=== PATIENT | male | born 1965 | race Caucasian/White ===

== ENCOUNTER → 2017-07-13 | Outpatient (CLI) | payer MEDICAID ==
[~2017-07-13] MED LIST: ALBUTEROL2 PUFFS/17 IN; ALLERGY RELIEF25 M1 PO; BACITRACIN500 U/G1 EX; FLEXERIL10 MG PO; INDOMETHACIN25 MG; KEFLEX 500MG.500 MG PO; NAPROXEN SOD.550 MG PO; NORCO 325 MG-51 TAB PO; PERCOCET 5/3251 EACH PO; PHENERGAN 25MG.25 MG PR; PREDNISONE 20MG20 MG PO; PROPRANOLOL HCL20 MG PO; TRAMADOL 50MG T50 MG PO; VALIUM 10MG TAB10 MG PO; VICODIN 5/500 T1 TAB PO
[2017-07-13 10:28] LABS: HEMOGLOBIN 16.9 g/dL (14.1-18.0); LYMPH % 34.2 % (10-50)
[2017-07-13 12:51] LABS: BUN 15 mg/dL (7-18)
[2017-07-13 12:56] LABS: GFR (ESTIMATED) 70 ML/MIN (>60)
== END ==
LOC: LAB 10:08
PROVIDERS: Internal Medicine Cardiovascular Disease
DX: R94.39 Abnormal result of other cardiovascular function study (principal); I10 Essential (primary) hypertension; I20.9 Angina pectoris, unspecified; R06.09 Other forms of dyspnea; Z72.0 Tobacco use

== ENCOUNTER → 2017-07-15 | Day surgery (SDC) | payer MEDICAID ==
--- NOTE | 2017-07-15 11:04 | RADIOLOGY REPORT PS360 ---
CARDIAC CATHETERIZATION DATE OF CATHETERIZATION:07/15/2017 9:05 AM PROCEDURES: 1. Left heart catheterization 2. Left ventriculogram 3. Selective coronary angiogram 4. Drug-eluting stent deployment to the mid left anterior descending artery 5. Drug-eluting stent deployment to the proximal dominant circumflex artery INDICATION FOR TEST: 1. Abnormal high risk Myoview 2. Coronary artery disease 3. Class III angina pectoris Informed consent was obtained prior to the procedure. COMPLICATIONS: None ESTIMATED BLOOD LOSS: Less than 10 ml. TECHNIQUE: One percent lidocaine used to anesthetize the right anterior aspect of the wrist. The right radial artery was accessed via the Seldinger technique. A 6 [place] sheath was placed in the right radial artery. 2.5 mg of verapamil, 800 mcg of nitroglycerin and 5000 U Heparin were given through the arterial sheath. 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 At this point one percent lidocaine was used to anesthetize the right groin and the right femoral artery was accessed via the Seldinger technique. A 4 [place] sheath was placed in the right femoral artery and a JL 4 JR4 catheter were used to perform left heart catheterization left ventriculogram and selective coronary angiography. At the end of the diagnostic angiogram and additional 6000 units of heparin was administered intravenously and the ACT was measured at 329 seconds. 60 mg of Effient was given orally to the patient. In EBU 3.75 guide catheter was used intubate the left main artery and a BMW wire was placed into the distal LAD. A 3 mm x 30 mm resolute [place] stent was deployed at 24 adry reducing the severe stenosis to 0%. TANNER II flow was present before the procedure with TANNER-3 flow after the procedure. At the end of the LAD procedure the BMW wire was placed into the circumflex artery and a 3 mm x 15 mm resolute [place] stent was deployed at 12 adry. A 3.5 x 8 mm noncompliant balloon was placed in the proximal mid segment and deployed at 20 adry on 2 occasions in order to post dilate the mid and proximal segment. TANNER-3 flow was present before and after the procedure. The closing ACT was out of range. At the end of the procedure the apparatus was removed the groin is reprepped closure changed sheath was removed good hemostasis was achieved using Perclose device patient was transferred to the postop holding area in stable condition prior to the coronary intervention the 6 [place] sheath that was placed in the right radial artery was removed with good hemostasis being achieved using TR banding in the 6 [place] hydrophilic sheath was used in the right femoral artery for arterial and interventional accessed ANGIOGRAPHIC RESULTS: 1. The left main artery normal 2. The left anterior descending artery proximally has 20% stenoses while the mid segment has a proximal 80% followed by a long concentric 40% stenosis. Distally the vessel has 20% stenoses. The first diagonal artery is a large branch and has a proximal 30-40% concentric stenosis. 3. The circumflex artery is a dominant vessel and has a proximal 80-90% concentric stenosis immediately proximal to the trifurcating first second and third obtuse marginal artery 4. The right coronary artery is a nondominant vessel and has proximal 30% with additional 40% and a mid vessel 50% concentric stenosis. Distally the vessel has 30% stenoses. 5. The ZHANG ventriculogram reveals normal 65% 6. The left ventricular end-diastolic pressure elevated at 15 mmHg IMPRESSION: 1. Severe 2 vessel coronary artery disease as described above 2. Successful stenting the mid LAD severe disease reduced to 0% with 1 drug-eluting stent 3. Successful stenting of the proximal dominant circumflex artery severe disease reduced to 0% with 1 drug-eluting stent 4. Resistant moderate stenosis in the large first diagonal artery and mid nondominant yet still large right coronary artery 5. Normal ejection fraction 6. Mildly elevated LVEDP PLAN: 1. Effient and aspirin 2. LDL less than 55 3. Aggressive risk factor modification 4. Avoidance of tobacco products 5. Cardiac rehabilitation
[2017-07-15 14:46] VITALS: BP 144/79
== END ==
LOC: CATHLAB 07:16
PROVIDERS: Internal Medicine
PROC: B2111ZZ Fluoroscopy of Multiple Coronary Arteries using Low Osmolar Contrast (ICD-10-PCS; 2017-07-15)
PROC: B2151ZZ Fluoroscopy of Left Heart using Low Osmolar Contrast (ICD-10-PCS; 2017-07-15)
PROC: 027135Z Dilation of Coronary Artery, Two Arteries with Two Drug-eluting Intraluminal Devices, Percutaneous Approach (ICD-10-PCS; 2017-07-15)
PROC: 4A023N7 Measurement of Cardiac Sampling and Pressure, Left Heart, Percutaneous Approach (ICD-10-PCS; principal; 2017-07-15 09:00)
DX: I25.10 Atherosclerotic heart disease of native coronary artery without angina pectoris (principal); Z72.0 Tobacco use; R94.39 Abnormal result of other cardiovascular function study; I10 Essential (primary) hypertension; R06.09 Other forms of dyspnea
CPT/HCPCS: C1725; C1760; C1769; C1876; J1644; Q9967

== ENCOUNTER → 2017-10-02 | Outpatient (CLI) | payer MEDICAID ==
[2017-10-02 14:45] LABS: BILIRUBIN, INDIRECT 1.35 mg/dL (0-0.9); BUN 15 mg/dL (7-18)
[2017-10-02 14:47] LABS: GFR (ESTIMATED) 63 ML/MIN (>60)
== END ==
LOC: LAB 13:18
PROVIDERS: Internal Medicine Cardiovascular Disease
DX: R00.2 Palpitations (principal); I25.10 Atherosclerotic heart disease of native coronary artery without angina pectoris; I10 Essential (primary) hypertension; E78.5 Hyperlipidemia, unspecified; G47.33 Obstructive sleep apnea (adult) (pediatric)